=== PATIENT | female | born 1965 | race Caucasian/White ===

== ENCOUNTER 2016-09-14 12:22 | Emergency (ER) | payer OTHER ==
[2016-09-14 12:58] VITALS: BMI 44.8
[2016-09-14 13:02] VITALS: RESP 18; TEMP 98.5
--- NOTE | 2016-09-14 14:08 | C.PDOC ---
History Of Present Illness 51 y/o female presents to the ED with complaints of left thumb pain x2 weeks, worse with movement. Pt denies changes in sensation or trauma. Right hand dominant. 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 Time Seen by Provider: 09/14/16 12:59 Chief Complaint (Nursing): Finger,Hand,&Wrist History Per: Patient History/Exam Limitations: no limitations Onset/Duration Of Symptoms: Days Current Symptoms Are (Timing): Still Present Quality: "Pain" Severity: Moderate Exacerbating Factor(s): Movement Recent travel outside of the [place]: No Past Medical History Reviewed: Historical Data, Nursing Documentation, Vital Signs Vital Signs: Last Vital Signs Temp 98.5 F 09/14/16 12:58 Pulse 71 09/14/16 14:23 Resp 18 09/14/16 14:23 BP 132/75 09/14/16 14:23 Pulse Ox 97 09/14/16 14:48 - Medical History PMH: Gastrointestinal Ulcer, HTN, Pancreatitis (secondary to gall stone) Surgical History: Cholecystectomy, Hernia Repair, Family History: States: Unknown Family Hx - Social History Hx Tobacco Use: No Hx Alcohol Use: No Hx Substance Use: No - Immunization History Hx Tetanus Toxoid Vaccination: No Hx Influenza Vaccination: No (2012) Hx Pneumococcal Vaccination: No Review Of Systems Musculoskeletal: Positive for: Other (left humb pain ) Neurological: Negative for: Weakness, Numbness Physical Exam - Physical Exam Appears: Non-toxic, No Acute Distress Skin: Warm, Dry, No Rash, No Ecchymosis Head: Atraumatic, Normacephalic Eye(s): bilateral: Normal Inspection, EOMI Nose: Normal Oral Mucosa: Moist Neck: Normal ROM, Supple Chest: Symmetrical Respiratory: No Accessory Muscle Use Extremity: Normal ROM, Tenderness (along left thenar eminence, pain with abduction), Capillary Refill (<2 seconds), No Deformity, No Swelling Extremity: Bilateral: Atraumatic, Normal Color And Temperature, Normal ROM Pulses: Left Radial: Normal, Right Radial: Normal Neurological/Psych: Oriented x3, Normal Speech, Normal Motor, Normal Sensation ED Course And Treatment O2 Sat by Pulse Oximetry: 97 (room air) Pulse Ox Interpretation: Normal - Other Rad XR right hand X-Ray: Viewed By Me, Read By Radiologist Interpretation: Accession No. : [id number]. Patient Name / ID : JAYDEN CHÁVEZ / [id number]. Exam Date : 09/14/2016 13:48:45 ( Approved ). Study Comment : Sex / Age : F / 51Y. Creator : Martin Elkins MD. Dictator : Martin Elkins MD. Electronic News Gathering Camera Person : Oss Architect : Martin Elkins MD. Approver2 : Report Date : 09/14/2016 14:22:51. My Comment : . PROCEDURE: Left Thumb radiographs. HISTORY: pain. COMPARISON: None. TECHNIQUE: AP radiograph of the left hand, as well as spot oblique and lateral images of thumb were obtained. FINDINGS: LEFT THUMB: Normal left thumb, without fracture or focal lesion. Remainder of the left hand (as seen on the AP view) grossly unremarkable. JOINTS: Normal. SOFT TISSUES: Normal. OTHER FINDINGS : None. IMPRESSION: Normal left thumb radiographs. Progress Note: Mcghee dressing placed by PA. Instructed RICE and patient to follow up with ortho or hand specialist in 1-2 days. Disposition - Disposition Referrals: Brandon Duke MD [Staff Provider] - Disposition: HOME/ ROUTINE Disposition Time: 14:06 Condition: STABLE Additional Instructions: Rest, ice and elevate the area. Follow up with hand specialist in 1-2 days. Return to ER if symptoms persist or worsen. Prescriptions: Naproxen [Naprosyn] 1 tab PO BID PRN #20 tab PRN Reason: Pain Instructions: Tendinitis (ED) - Clinical Impression Clinical Impression: Tendonitis - PA / DIRECTOR OF REGULATORY AFFAIRS / Resident Statement /DO has reviewed & agrees with the documentation as recorded. - Scribe Statement The provider has reviewed the documentation as recorded by the Scribe Rishabh thomas All medical record entries made by the Scribe were at my direction and personally dictated by me. I have reviewed the chart and agree that the record accurately reflects my personal performance of the history, physical exam, medical decision making, and the department course for this patient. I have also personally directed, reviewed, and agree with the discharge instructions and disposition.
[2016-09-14 14:24] VITALS: BP 132/75; PULSE 71
--- NOTE | 2016-09-14 14:24 | RAD ---
PROCEDURE: Left Thumb radiographs. HISTORY: pain COMPARISON: None. TECHNIQUE: AP radiograph of the left hand, as well as spot oblique and lateral images of thumb were obtained. FINDINGS: LEFT THUMB: Normal left thumb, without fracture or focal lesion. Remainder of the left hand (as seen on the AP view) grossly unremarkable. JOINTS: Normal. SOFT TISSUES: Normal. OTHER FINDINGS: None. IMPRESSION: Normal left thumb radiographs.
[2016-09-14 14:46] VITALS: O2SAT 97
== END 2016-09-14 14:47 | disposition home or self-care (01) ==
LOC: C.ER 12:22
DX: M77.9 Enthesopathy, unspecified (principal)